=== PATIENT | female | born 1950 | race Caucasian/White ===

== ENCOUNTER 2017-04-13 12:13 | Emergency (ER) | payer OTHER ==
--- NOTE | 2017-04-13 14:19 | ERNOTE ---
Medical Problem HPI - Narrative Date of Service: 04/13/17 - General Chief Complaint: General Assessment Time Seen by Provider: 04/13/17 14:07 Source: patient, RN notes reviewed Exam Limitations: no limitations - Immun/Allergies/Home Medications Immunizations: IMMUNIZATION HX Immunizations Up to Date Yes Hx Pneumococcal Vaccination No Allergies/Adverse Reactions: Allergies sulfamethoxazole [From Bactrim] Adverse Reaction (Mild, Verified 04/13/17 13:53) EXACERBATED SIDE EFFECTS trimethoprim [From Bactrim] Adverse Reaction (Mild, Verified 04/13/17 13:53) EXACERBATED SIDE EFFECTS Home Medications: HOME MEDICATIONS Ibuprofen [Motrin] 800 mg PO TID PRN 11/30/15 [Last Taken Unknown] Multivitamins [Multivitamin Chanle] 1 cap PO DAILY 11/30/15 [Last Taken Unknown] clonazePAM [Klonopin] 0.5 mg PO BID 11/30/15 [Last Taken Unknown] Sertraline HCl [Zoloft] 75 mg PO DAILY 04/13/17 [Last Taken Unknown] - Pain Score Pain Score #1 Pain Score: 0 - History of Present History Narrative: 66 y/o female to the ED by private vehicle for fatigue, malaise and lightheadedness that started when she got up today. She states that she does not feel like herself and came in just to be checked out and make sure she was okay. She denies any pain. She denies any sick contacts. Date (Duration): 04/13/17 Review of Systems - Review of Systems Constitutional: Present: fatigue, malaise, decreased activity level. Absent: recent illness, fever, chills EYE: Present: no symptoms reported ENT: Absent: ear pain, nose congestion, sore throat Respiratory: Absent: shortness of breath, cough Cardiology: Absent: chest pain, palpitations, syncope, edema Gastrointestinal/Abdominal: Absent: nausea, vomiting, diarrhea, constipation, abdominal pain Genitourinary: Absent: frequency, dysuria Musculoskeletal: Absent: muscle pain, joint pain Skin: Absent: rash, lesions Neurological: Present: dizziness/light-headedness. Absent: headache Endocrine: Present: no symptoms reported Hematologic/Lymphatic: Present: no symptoms reported Psych: Absent: anxiety, depressed - Patient's Past Medical History Patient History - Medical: Anxiety, Depression Patient History - Cardiac/Respiratory: No pertinent hx Patient History - Cancer: Skin Patient History - Surgical Procedures: Cancer Surgery Patient History - Other: None LMP (females 10-50): Menopausal - Social History Living Situations: spouse Abuse History: No History of abuse Psych History: Hx of Anxiety, Hx of Depression Smoking Status: Former smoker Have you smoked in the past 12 months: No Alcohol Use: none Drug Use: none - Immunizations Immunizations Up to Date: Yes Hx Pneumococcal Vaccination: No Physical Exam - Physical Exam General Appearance: Present: wd/wn, alert, no apparent distress Eye Exam: Normal inspection: bilateral, PERRL: bilateral Ears, Nose, Throat: Present: normal ENT inspection Neck: Present: normal inspection, nontender, supple, full range of motion. Absent: thyromegaly Respiratory: Present: no respiratory distress, normal breath sounds, no accessory muscle use, lungs clear Cardiovascular/Chest: Present: regular rate, rhythm, no murmur Extremity Exam: Present: normal inspection, normal range of motion, no edema Neurological Exam: Present: alert, oriented, normal mood/affect, no motor/ sensory deficits Skin Exam: Present: normal color, warm/dry ED Progress - Results and Orders Patient's Lab Results:: I have reviewed the patient's lab results. - Vital Signs Patient's Vital Signs:: I have reviewed the patient's vital signs. Vital Signs: Vital Signs 04/13/17 12:28 Temperature 36.5 C Pulse Rate 67 Respiratory 18 Rate Blood Pressure 168/91 O2 Sat by Pulse 98 Oximetry - EKG EKG: NSR EKG read: Reviewed by me - Progress/Reassessment Chief Complaint: General Assessment Progress:: Unchanged Departure - Departure Clinical Impression: Malaise, Lightheadedness Disposition: Home Follow Up Needed Condition: Stable Instructions: Fatigue Additional Instructions: Rest and drink plenty of fluids Continue your routine medications Follow up with your PCP or return to the ED if symptoms persist or worsen Referrals: Yasmine Perla FNP [Primary Care Provider] -
[2017-04-13 14:25] LABS: Urine Bilirubin Negative (NEGATIVE); Urine Blood Negative /ul (NEGATIVE); Urine Ketone Negative (NEGATIVE); Urine Nitrite Negative (NEGATIVE); Urine Protein Negative (NEGATIVE); Urine Specific Gravity <=1.005 SP.GR. (1.005-1.010); Urine Urobilinogen Normal (NORMAL)
[2017-04-13 14:33] LABS: Urine Appearance Clear; Urine Bacteria None Seen; Urine Color Yellow; Urine RBC None Seen /hpf (0-5); Urine WBC None Seen /hpf (0-5)
[2017-04-13 14:38] LABS: Hemoglobin 12.8 gm/dL (12.5-16.0); Mean Cell Volume 86.6 fl (78-100); Mean Corpuscular Hemoglobin 29.2 pg (27-31); Mean Corpuscular Hgb Conc 33.7 g/dl (32-36); Mean Platelet Volume 9.2 fl (6.0-9.5); Neutrophil # 6.4 K/mm3 (1.3-6.0); Neutrophil % 71.8 % (42-75.0); Platelet Count 421 K/mm3 (150-450); Red Blood Count 4.39 M/mm3 (4.2-5.4); Red Cell Distribution Width 14.1 % (11.5-14.0); White Blood Count 8.9 K/mm3 (4.0-10.5)
[2017-04-13 14:59] LABS: ALT 23 U/L (19-67); AST 16 U/L (0-48); Albumin * 3.9 gm/dl (3.4-5.0); Alkaline Phosphatase * 101 U/L (50-170); Anion Gap 11.2 mmol/L (6.8-13.8); BUN/Creatinine Ratio 14.1 (9.0-21.6); Bilirubin, Total 0.3 mg/dL (0.0-1.1); Blood Urea Nitrogen 10 mg/dL (3-23); Ca. Corrected For Albumin 9.2 mg/dL (8.4-10.2); Calcium * 9.4 mg/dL (7.9-10.9); Carbon Dioxide 29.2 mmol/L (24-32.6); Chloride 97 mmol/L (97-106); Glucose * 105 mg/dL (70-110); Potassium 4.4 mmol/L (3.4-4.6); Sodium 133 mmol/L (132-142); Total Protein 7.7 gm/dL (6.2-8.2); Troponin I Less than 0.017 ng/ml (0.00-0.10)
[2017-04-13 15:06] VITALS: BP 172/84
== END 2017-04-13 15:45 | disposition home or self-care (01) ==
LOC: ER 12:13
DX: R53.81 Other malaise (principal); R42 Dizziness and giddiness; F41.8 Other specified anxiety disorders